=== PATIENT | male | born 1980 | race Caucasian/White ===

== ENCOUNTER 2017-02-19 17:34 | Emergency (ER) | payer OTHER ==
[~2017-02-19] VITALS: Ht 180.3 cm; Wt 111.8 kg
[2017-02-19] MEDS ORDERED: KETOROLAC 60 MG/2 ML VIAL (J1885) IM ONE (20:30)
[2017-02-19 21:21] VITALS: BP 137/94
--- NOTE | 2017-02-20 08:00 | REP ---
Clinical: Pain . Technique: AP, lateral, bilateral oblique, and coned-down views. Findings: Alignment and lordosis is maintained. The vertebral bodies including transverse process and spinous processes are intact and normal. There is no evidence for acute fracture / compression injury or subluxation. No evidence for spondylolysis or spondylolisthesis. No significant degenerative change is noted. Impression: Normal lumbosacral spine radiograph series. Signed by David Atkinson MD 02/20/2017 07:53 A
== END 2017-02-19 21:28 | disposition home or self-care (01) ==
LOC: M ED 17:34
DX: G89.29 Other chronic pain (principal); M54.9 Dorsalgia, unspecified
CPT/HCPCS: 72110; 96372; 99283; J1885

== ENCOUNTER 2018-10-28 11:39 | Emergency (ER) | payer OTHER ==
[~2018-10-28] VITALS: Ht 180.3 cm; Wt 117.1 kg
[2018-10-28 13:57] LABS: BASO % 0.6 % (0.0-1.0); EOS # 0.1 10^3/uL (0.0-0.50); EOS % 1.5 % (0.0-3.0); HEMOGLOBIN 15.8 g/dl (13.5-17.5); LYMPH # 2.3 10^3/uL (1.5-4.5); MEAN CORPUSCULAR HEMOGLOBIN 29.6 pg (27.0-33.0); MEAN CORPUSCULAR HGB CONC 35.1 g/dl (32.0-36.5); MEAN CORPUSCULAR VOLUME 84.4 fl (80.0-96.0); MONO # 0.7 10^3/uL (0.0-0.8); MONO % 11.1 % (0.0-5.0); NEUTROPHILS # 3.3 10^3/uL (1.8-7.7); NEUTROPHILS % 51.2 % (36.0-66.0); PLATELET COUNT, AUTOMATED 246 10^3/uL (150-450); RED BLOOD COUNT 5.33 10^6/uL (4.30-6.10); WHITE BLOOD COUNT 6.5 10^3/uL (4.0-10.0)
[2018-10-28 14:19] LABS: MONO REFLEX EBV COMP NEGATIVE (NEGATIVE)
[2018-10-28] MEDS ORDERED: ISOVUE-370 76% 100ML VIAL (Q9967) As Ordered ONE (14:19)
[2018-10-28 14:25] LABS: ERYTHROCYTE SEDIMENTATION RATE 2 mm/hr (0-15)
[2018-10-28 14:28] LABS: FREE T4 0.87 NG/DL (0.76-1.46)
[2018-10-28 15:11] VITALS: BP 131/78
--- NOTE | 2018-10-28 15:46 | REP ---
CT SOFT TISSUES NECK: CT soft tissues neck performed following the intravenous administration of 75 mL Isovue-370. Sagittal and coronal reconstruction images are performed. The airway is widely patent with no narrowing. There is no evidence of epiglottitis. Adenoids do not appear to be significantly enlarged. I do not see significant lymphadenopathy in the neck. Submandibular, parotid and thyroid glands demonstrate no nodule or mass. Globes are intact. The visualized paranasal sinuses are unremarkable. IMPRESSION: Negative CT neck soft tissues with IV contrast. Electronically Signed by Ed Bucio MD 10/28/2018 05:47 P
[2018-10-29 14:12] LABS: EBV AB TO NUCLEAR ANTIGEN >600.0 U/mL (0.0-17.9); EBV VIRAL CAPSID AG IgM <36.0 U/mL (0.0-35.9)
== END 2018-10-28 15:54 | disposition home or self-care (01) ==
LOC: M ED 11:39
DX: R13.10 Dysphagia, unspecified (principal); Z90.89 Acquired absence of other organs
CPT/HCPCS: 36415; 70491; 80047; 84439; 84443; 85025; 85652; 86308; 86663; 86664; 86665; 99284; Q9967

== ENCOUNTER 2022-06-10 16:29 | Emergency (ER) | payer OTHER ==
[~2022-06-10] VITALS: Ht 182.9 cm; Wt 123.3 kg
[2022-06-10 17:25] LABS: BASO # 0.1 10^3/uL (0.0-0.2); BASO % 0.7 % (0.0-1.0); EOS # 0.1 10^3/uL (0.0-0.5); EOS % 1.7 % (0.0-3.0); HEMATOCRIT 46.1 % (42.0-52.0); HEMOGLOBIN 15.7 g/dl (13.5-17.5); LYMPH # 2.7 10^3/uL (1.5-5.0); MEAN CORPUSCULAR HEMOGLOBIN 29.3 pg (27.0-33.0); MEAN CORPUSCULAR HGB CONC 34.1 g/dl (32.0-36.5); MEAN CORPUSCULAR VOLUME 86.2 fl (80.0-96.0); MONO # 0.8 10^3/uL (0.0-0.8); MONO % 11.1 % (2.0-8.0); NEUTROPHILS # 3.5 10^3/uL (1.5-8.5); NEUTROPHILS % 49.2 % (36.0-66.0); PLATELET COUNT, AUTOMATED 274 10^3/uL (150-450); RED BLOOD COUNT 5.35 10^6/uL (4.30-6.10); WHITE BLOOD COUNT 7.2 10^3/uL (4.0-10.0)
[2022-06-10 17:34] LABS: BLOOD UREA NITROGEN 20 MG/DL (9-23); CALCIUM LEVEL 9.7 MG/DL (8.5-10.1); CARBON DIOXIDE LEVEL 30 MMOL/L (20-31); CHLORIDE LEVEL 104 MMOL/L (98-107); CREATININE FOR GFR 0.95 MG/DL (0.70-1.30); GLOMERULAR FILTRATION RATE > 60.0 (>60); GLUCOSE, FASTING 95 MG/DL (60-100); POTASSIUM SERUM 4.4 MMOL/L (3.5-5.1); SODIUM LEVEL 141 MMOL/L (136-145)
[2022-06-10 17:38] LABS: CK-MB VALUE MASS 1.5 NG/ML (<3.6)
[2022-06-10 17:45] LABS: CPK CREATINE PHOSPHOKINASE 195 U/L (46-171); MB/CK RELATIVE INDEX 0.76 (< OR =4)
[2022-06-10 18:01] LABS: INR 0.91; PROTHROMBIN TIME 12.4 SECONDS (12.5-14.5)
[2022-06-10 18:02] LABS: PARTIAL THROMBOPLASTIN TIME 25.7 SECONDS (24.8-34.2)
[2022-06-10] MEDS ORDERED: DOXY100T (20:17)
[2022-06-10] MEDS ORDERED: KETOROLAC 30 MG/ML 1ML VIAL IV ONE (20:35)
[2022-06-10] MEDS ORDERED: GI COCKTAIL 50ML BTL(HYOSCYAMINE/MAALOX/LIDOCAINE VISCOUS)(1:3:1) PO ONE (20:35)
[2022-06-10 21:10] LABS: D-DIMER QUANT 287.09 ng/ml (<500)
[2022-06-10 21:36] LABS: CK-MB VALUE MASS 1.2 NG/ML (<3.6)
[2022-06-10 21:40] LABS: MB/CK RELATIVE INDEX 0.7 (< OR =4)
[2022-06-10] MEDS ORDERED: NORCO 5/325MG TABLET (HOME DOSE PACK) PO ONE (22:25)
[2022-06-10 22:49] VITALS: BP 126/84
== END 2022-06-10 22:51 | disposition home or self-care (01) ==
LOC: M ED 16:29
DX: R07.89 Other chest pain (principal); K21.9 Gastro-esophageal reflux disease without esophagitis
CPT/HCPCS: 71045; 80048; 82550; 82553; 84484; 85025; 85379; 85610; 85730; 93005; 96374; 99284; J1885

== ENCOUNTER → 2022-10-30 | Outpatient (CLI) | payer OTHER ==
[~2022-10-30] MED LIST: DOXY100T; METHACHOLINE KIT INH ONE
== END ==
LOC: M CARPUL 09:12
PROVIDERS: ATTEND Internal Medicine Pulmonary Disease
DX: R06.02 Shortness of breath (principal)
CPT/HCPCS: 94070; J7674

== ENCOUNTER → 2023-07-26 | Outpatient (CLI) | payer OTHER ==
[~2023-07-26] MED LIST changes: +ADVA115A; -METHACHOLINE KIT INH ONE; +PRED20TA PO; +TEST200I14; +VALI5TAB PO
== END ==
LOC: M SLEEP 20:00
PROVIDERS: ATTEND Internal Medicine Pulmonary Disease
DX: G47.33 Obstructive sleep apnea (adult) (pediatric) (principal)

== ENCOUNTER 2023-08-02 08:07 | Emergency (ER) | payer OTHER ==
[~2023-08-02] VITALS: Ht 182.9 cm; Wt 120.3 kg
[~2023-08-02 08:07] MED LIST changes: -ADVA115A; -PRED20TA PO; -TEST200I14; -VALI5TAB PO
[2023-08-02] MEDS ORDERED: ADVA115A (08:15)
[2023-08-02] MEDS ORDERED: TEST200I14 (08:15)
[2023-08-02] MEDS: methylPREDNISolone 125MG 2ML VIAL IV ONE (09:03)
[2023-08-02] MEDS: diazePAM 10MG/2ML SYRINGE IV ONE (09:03)
[2023-08-02] MEDS ORDERED: VALI5TAB PO (10:07)
[2023-08-02] MEDS ORDERED: PRED20TA PO (10:07)
[2023-08-02 10:12] VITALS: BP 145/90; TEMP 97.8; O2SAT 96
== END 2023-08-02 10:23 | disposition home or self-care (01) ==
LOC: M ED 08:07
DX: M54.50 Low back pain, unspecified (principal); K21.9 Gastro-esophageal reflux disease without esophagitis; K76.0 Fatty (change of) liver, not elsewhere classified; J45.909 Unspecified asthma, uncomplicated; Z79.899 Other long term (current) drug therapy
CPT/HCPCS: 96374; 96375; 99284; J2919; J3360

== ENCOUNTER 2023-09-07 16:06 | Emergency (ER) | payer OTHER ==
[~2023-09-07] VITALS: Ht 182.9 cm; Wt 114.5 kg
[~2023-09-07 16:06] MED LIST changes: +ADVA115A; +PRED20TA PO; +TEST200I14; +VALI5TAB PO
[2023-09-07 16:45] LABS: BASO % 0.4 % (0.0-1.0); EOS # 0.1 10^3/uL (0.0-0.5); EOS % 0.6 % (0.0-3.0); HEMATOCRIT 50.3 % (42.0-52.0); HEMOGLOBIN 17.6 g/dl (13.5-17.5); LYMPH # 2.3 10^3/uL (1.5-5.0); LYMPH % 21.3 % (24.0-44.0); MEAN CORPUSCULAR HEMOGLOBIN 30.9 pg (27.0-33.0); MEAN CORPUSCULAR VOLUME 88.4 fl (80.0-96.0); MONO # 1.1 10^3/uL (0.0-0.8); MONO % 10.4 % (2.0-8.0); NEUTROPHILS # 7.3 10^3/uL (1.5-8.5); NEUTROPHILS % 66.9 % (36.0-66.0); PLATELET COUNT, AUTOMATED 226 10^3/uL (150-450); RED BLOOD COUNT 5.69 10^6/uL (4.30-6.10); WHITE BLOOD COUNT 10.9 10^3/uL (4.0-10.0)
[2023-09-07 19:00] VITALS: TEMP 98.8
[2023-09-07 19:19] LABS: ALBUMIN 4.5 G/DL (3.2-5.2); ALKALINE PHOSPHATASE 35 U/L (46-116); ALT/SGPT 40 U/L (7.0-40); AST/SGOT 117 U/L (<34); BILIRUBIN,DIRECT 0.3 MG/DL (<0.4); BILIRUBIN,TOTAL 1.7 MG/DL (0.3-1.2); CK-MB VALUE MASS < 1.0 NG/ML (<3.6); CPK CREATINE PHOSPHOKINASE 206 U/L (46-171); FREE T4 1.14 NG/DL (0.89-1.76); LIPASE 44 U/L (12-53); MB/CK RELATIVE INDEX 0.48 (< OR =4); THYROID STIMULATING HORMONE 1.189 uIU/ML (0.55-4.78); TOTAL PROTEIN 7.2 G/DL (5.7-8.2)
[2023-09-07] MEDS ORDERED: ISOVUE-370 76% 100ML VIAL As Ordered ONE (20:27)
[2023-09-07 20:32] LABS: BLOOD UREA NITROGEN 15 MG/DL (9-23); CALCIUM LEVEL 8.6 MG/DL (8.5-10.1); CARBON DIOXIDE LEVEL 27 MMOL/L (20-31); CHLORIDE LEVEL 106 MMOL/L (98-107); CK-MB VALUE MASS < 1.0 NG/ML (<3.6); CPK CREATINE PHOSPHOKINASE 114 U/L (46-171); CREATININE FOR GFR 0.98 MG/DL (0.70-1.30); GLOMERULAR FILTRATION RATE > 60.0 (>60); GLUCOSE, FASTING 95 MG/DL (60-100); MB/CK RELATIVE INDEX 0.87 (< OR =4); POTASSIUM SERUM 3.6 MMOL/L (3.5-5.1); SODIUM LEVEL 139 MMOL/L (136-145)
[2023-09-07] MEDS: NS 1,000 ML IV ONE (20:42)
[2023-09-07 20:48] LABS: CHOLESTEROL LEVEL 167 MG/DL (<200); CHOLESTEROL RISK RATIO 3.72 (<5); HDL CHOLESTEROL 44.8 MG/DL (>40); LDL CHOLESTEROL 84.6 MG/DL (<100); NON-HDL-C 122.2 MG/DL; TRIGLYCERIDES LEVEL 188 MG/DL (<150)
[2023-09-07 21:31] VITALS: BP 133/78; O2SAT 96
== END 2023-09-07 22:04 | disposition home or self-care (01) ==
LOC: M ED 16:06
DX: R00.2 Palpitations (principal); Z79.899 Other long term (current) drug therapy
CPT/HCPCS: 71045; 71275; 80047; 80048; 80061; 80076; 82550; 82553; 83690; 84439; 84443; 84484; 85025; 93005; 93041; 94760; 99285; Q9967

== ENCOUNTER 2024-01-25 15:33 | Emergency (ER) | payer OTHER ==
[~2024-01-25] VITALS: Ht 182.9 cm; Wt 117.5 kg
[2024-01-25] MEDS ORDERED: IBUP-1114 PO (16:09)
[2024-01-25] MEDS ORDERED: KETOROLAC 30 MG/ML 1ML VIAL IV ONE (18:20)
[2024-01-25] MEDS: KETOROLAC 30 MG/ML 1ML VIAL IM ONE (18:26)
[2024-01-25] MEDS: LIDOCAINE 5% (LIDODERM) PATCH TD ONE (18:27)
[2024-01-25 19:54] VITALS: BP 147/85; TEMP 98; O2SAT 98
== END 2024-01-25 20:00 | disposition home or self-care (01) ==
LOC: M ED 15:33
DX: M54.41 Lumbago with sciatica, right side (principal); J45.909 Unspecified asthma, uncomplicated; G56.00 Carpal tunnel syndrome, unspecified upper limb; F10.10 Alcohol abuse, uncomplicated; Z87.891 Personal history of nicotine dependence; Z79.1 Long term (current) use of non-steroidal anti-inflammatories (NSAID); Z79.899 Other long term (current) drug therapy
CPT/HCPCS: 96372; 99283; J1885

== ENCOUNTER 2024-05-28 14:02 | Emergency (ER) | payer OTHER ==
[~2024-05-28] VITALS: Ht 182.9 cm; Wt 120.0 kg
[~2024-05-28 14:02] MED LIST changes: +IBUP-1114 PO
[2024-05-28] MEDS ORDERED: VITA100093 (14:15)
[2024-05-28 17:25] VITALS: BP 143/82; TEMP 97.2; O2SAT 97
[2024-05-28] MEDS: ONDANSETRON 4MG ORAL DISINTEGRATING TAB PO ONE (17:45)
[2024-05-28] MEDS ORDERED: ONDA-282 PO (18:07)
== END 2024-05-28 18:15 | disposition home or self-care (01) ==
LOC: M ED 14:02
DX: S06.0X0A Concussion without loss of consciousness, initial encounter (principal); W01.198A Fall on same level from slipping, tripping and stumbling with subsequent striking against other object, initial encounter; Y92.008 Other place in unspecified non-institutional (private) residence as the place of occurrence of the external cause; Y93.H1 Activity, digging, shoveling and raking; Y99.9 Unspecified external cause status; Z79.899 Other long term (current) drug therapy; Z79.83 Long term (current) use of bisphosphonates

== ENCOUNTER → 2024-06-22 | Outpatient (CLI) | payer OTHER ==
[~2024-06-22] MED LIST changes: +ONDA-282 PO; +VITA100093
== END ==
LOC: M CARPUL 15:27
PROVIDERS: ATTEND Internal Medicine
DX: R59.0 Localized enlarged lymph nodes (principal)

== ENCOUNTER 2025-03-27 19:29 | Emergency (ER) | payer OTHER ==
[~2025-03-27] VITALS: Ht 182.9 cm; Wt 133.0 kg
[2025-03-27 19:41] VITALS: TEMP 98.5
[2025-03-27 21:05] LABS: BASO # 0.1 10^3/uL (0.0-0.2); BASO % 0.6 % (0.0-1.0); EOS # 0.2 10^3/uL (0.0-0.5); EOS % 2.3 % (0.0-3.0); LYMPH # 2.6 10^3/uL (1.5-5.0); LYMPH % 32.2 % (24.0-44.0); MONO # 1.0 10^3/uL (0.0-0.8); MONO % 12.0 % (2.0-8.0); NEUTROPHILS # 4.3 10^3/uL (1.5-8.5); NEUTROPHILS % 52.2 % (36.0-66.0); PLATELET COUNT, AUTOMATED 249 10^3/uL (150-450)
[2025-03-27 21:31] LABS: INR 0.93
[2025-03-27 21:54] LABS: ALT/SGPT 66 U/L (7.0-40); AST/SGOT 40 U/L (<34); CALCIUM LEVEL 9.1 MG/DL (8.5-10.1); CARBON DIOXIDE LEVEL 27 MMOL/L (20-31); CHLORIDE LEVEL 103 MMOL/L (98-107); CK-MB VALUE MASS 2.6 NG/ML (<3.6); CREATININE FOR GFR 1.27 MG/DL (0.70-1.30); GLOMERULAR FILTRATION RATE 72.3 (>60); POTASSIUM SERUM 4.0 MMOL/L (3.5-5.1); SODIUM LEVEL 140 MMOL/L (136-145)
[2025-03-27] MEDS ORDERED: ISOVUE-370 76% 100 ML VIAL As Ordered ONE (21:57)
[2025-03-27 21:59] LABS: CPK CREATINE PHOSPHOKINASE 186 U/L (46-171); MB/CK RELATIVE INDEX 1.39 (< OR =4)
[2025-03-27] MEDS: KETOROLAC 30 MG/ML 1 ML VIAL IV ONE (22:13)
[2025-03-27] MEDS: PANTOPRAZOLE 40MG VIAL IV ONE (23:29)
[2025-03-28 00:11] LABS: CK-MB VALUE MASS 2.4 NG/ML (<3.6)
[2025-03-28 00:16] LABS: CPK CREATINE PHOSPHOKINASE 163 U/L (46-171); MB/CK RELATIVE INDEX 1.47 (< OR =4)
[2025-03-28] MEDS: MORPHINE 4 MG/ML 1 ML VIAL IV PRN (00:54)
[2025-03-28] MEDS: ONDANSETRON 4MG/2ML VIAL IV ONE (00:55)
[2025-03-28 03:15] VITALS: BP 137/82; O2SAT 96
== END 2025-03-28 03:22 | disposition home or self-care (01) ==
LOC: M ED 19:29
DX: R07.9 Chest pain, unspecified (principal); J45.909 Unspecified asthma, uncomplicated; J98.11 Atelectasis; K76.0 Fatty (change of) liver, not elsewhere classified; Z79.1 Long term (current) use of non-steroidal anti-inflammatories (NSAID); Z79.899 Other long term (current) drug therapy
CPT/HCPCS: 71275; 80048; 80076; 82550; 82553; 83690; 84484; 85025; 85610; 85730; 93005; 93970; 96374; 96375; 99285; J1885; J2405; J2470; Q9967